=== PATIENT | male | born 1990 | race African-American/Black ===

== ENCOUNTER 2019-02-19 09:16 | Emergency (ER) | payer MEDICAID ==
[~2019-02-19] VITALS: Ht 182.9 cm; Wt 71.2 kg
[2019-02-19 09:41] VITALS: BP 120/82
== END 2019-02-19 10:48 | disposition home or self-care (01) ==
LOC: ED 09:16 → EDSEX 09:16 → ED 10:48
DX: J11.1 Influenza due to unidentified influenza virus with other respiratory manifestations (principal)

== ENCOUNTER 2019-11-14 14:36 | Emergency (ER) | payer MEDICAID ==
[~2019-11-14] VITALS: Ht 180.3 cm; Wt 74.8 kg
[2019-11-14 14:54] VITALS: Ht 180.3 cm; Wt 74.8 kg
[2019-11-14 16:17] LABS: CALCIUM 9.3 mg/dL (8.5-10.1); CARBON DIOXIDE 30.2 mmol/L (21-32); CHLORIDE SERUM 102 mmol/L (98-107); CREATININE SERUM 1.2 mg/dL (0.7-1.3); GFR1 > 60 mL/min; GLUCOSE SERUM 90 mg/dL (74-106); POTASSIUM SERUM 4.5 mmol/L (3.5-5.1); SODIUM SERUM 137 mmol/L (136-145)
[2019-11-14 16:22] LABS: ALBUMIN 4.3 g/dL (3.4-5.0); ALKALINE PHOSPHATASE 64 U/L (46-116); ALT/SGPT 40 U/L (16-63); AST/SGOT 22 U/L (15-37); BILIRUBIN TOTAL 0.73 mg/dL (0.20-1.00); LIPASE 407 IU/L (73-393)
[2019-11-14 16:23] LABS: TOTAL PROTEIN, SERUM 8.9 g/dL (6.4-8.2)
[2019-11-14 16:28] LABS: BASOPHIL % 0.7 % (0-2); PLATELET COUNT 198 x10^3mcL (130-400); RED CELL DISTRIBUTION WIDTH 12.5 % (11.5-14.5)
[2019-11-14 17:58] VITALS: BP 108/78
== END 2019-11-14 17:58 | disposition home or self-care (01) ==
LOC: ED 14:36
PROVIDERS: Emergency Medicine
DX: R11.2 Nausea with vomiting, unspecified (principal); R19.7 Diarrhea, unspecified; R10.13 Epigastric pain
CPT/HCPCS: J2270; J2405; Q9967

== ENCOUNTER 2020-01-18 12:37 | Emergency (ER) | payer MEDICAID ==
[~2020-01-18] VITALS: Ht 180.3 cm; Wt 70.3 kg
[2020-01-18 12:54] VITALS: Ht 180.3 cm; Wt 70.3 kg
[2020-01-18 15:45] LABS: UA SPECIFIC GRAVITY 1.025 (1.005-1.035); microscopic required? YES; urine erythrocyte TRACE (NEGATIVE)
[2020-01-18 15:51] LABS: CALCIUM 9.2 mg/dL (8.5-10.1); CARBON DIOXIDE 29.6 mmol/L (21-32); CHLORIDE SERUM 101 mmol/L (98-107); CREATININE SERUM 1.3 mg/dL (0.7-1.3); GFR1 > 60 mL/min; GLUCOSE SERUM 82 mg/dL (74-106); POTASSIUM SERUM 4.4 mmol/L (3.5-5.1); SODIUM SERUM 136 mmol/L (136-145)
[2020-01-18 15:54] LABS: BASOPHIL % 0.6 % (0-2); PLATELET COUNT 170 x10^3mcL (130-400); RED CELL DISTRIBUTION WIDTH 12.8 % (11.5-14.5)
[2020-01-18 15:56] LABS: ALBUMIN 4.3 g/dL (3.4-5.0); ALKALINE PHOSPHATASE 59 U/L (46-116); ALT/SGPT 31 U/L (16-63); AST/SGOT 21 U/L (15-37); BILIRUBIN TOTAL 2.6 mg/dL (0.20-1.00); LIPASE 128 IU/L (73-393)
[2020-01-18 16:00] LABS: TOTAL PROTEIN, SERUM 8.5 g/dL (6.4-8.2)
[2020-01-18 16:16] LABS: AMPHETAMINE QUAL UR NONE DETECTED (See below)
[2020-01-18 17:40] VITALS: BP 118/68
== END 2020-01-18 17:40 | disposition home or self-care (01) ==
LOC: ED 12:37
PROVIDERS: Emergency Medicine
DX: F12.10 Cannabis abuse, uncomplicated (principal); Z20.828 Contact with and (suspected) exposure to other viral communicable diseases; R10.9 Unspecified abdominal pain